=== PATIENT | female | born 1975 ===

== ENCOUNTER 2022-02-02 08:30 | Inpatient (IN) | payer OTHER ==
[~2022-02-02] VITALS: Ht 160 cm; Wt 59.4 kg
[2022-02-02] MEDS ORDERED: PREVACID30 MG PO (10:19)
[2022-02-10] MEDS ORDERED: CIPRO500 MG PO (08:12)
[2022-02-10] MEDS ORDERED: METRONIDAZOLE500 MG PO (08:12)
[2022-02-10] MEDS ORDERED: INTESTINEX680 M1 PO (08:13)
[2022-02-10] MEDS ORDERED: FLUCONAZOLE150 MG PO (08:13)
[2022-02-10] MEDS ORDERED: COLACE100 MG PO (08:14)
[2022-02-10] MEDS ORDERED: ULTRAM50 MG PO (08:14)
== END 2022-02-10 10:53 | disposition home or self-care (01) | DRG 982 ==
LOC: O/R 02-07 07:05 → SURH 02-07 07:05
PROVIDERS: ADMIT Surgery; ATTEND Surgery
PROC: 0UBG7ZZ Excision of Vagina, Via Natural or Artificial Opening (ICD-10-PCS; 2022-02-07)
PROC: 0KX Muscles, Transfer (ICD-10-PCS; principal; 2022-02-07 09:45)
DX: N82.3 Fistula of vagina to large intestine (principal); T81.30XA Disruption of wound, unspecified, initial encounter; N82.5 Female genital tract-skin fistulae; R15.9 Full incontinence of feces